=== PATIENT | male | born 1965 | race Asian ===

== ENCOUNTER 2022-03-01 16:12 | Emergency (ER) | payer OTHER ==
[2022-03-01] MEDS ORDERED: ONDANSETRON 4 MG/2 ML VIAL IVP STA (16:44)
[2022-03-01] MEDS ORDERED: SODIUM CHLORIDE 0.9% 1,000 ML IV STA (16:44)
[2022-03-01 16:58] LABS: BASOPHILS % (AUTO) 0.3 %; EOSINOPHILS % (AUTO) 0.1 %; HCT - HEMATOCRIT 44.4 % (42.0-52.0); HGB - HEMOGLOBIN 15.2 g/dL (14.0-18.0); LYMPHOCYTES # (AUTO) 0.9 10^3/uL (1.5-3.5); LYMPHOCYTES % (AUTO) 9.2 %; MEAN CORPUSCULAR HGB CONC 34.2 g/dL (32.0-36.0); MEAN CORPUSCULAR VOLUME 87.6 fL (80.0-94.0); MEAN PLATELET VOLUME 9.9 fL (7.4-11.4); MONOCYTES # (AUTO) 0.5 10^3/uL (0.0-1.0); MONOCYTES % (AUTO) 4.6 %; NEUTROPHILS # (AUTO) 8.6 10^3/uL (1.5-6.6); NEUTROPHILS % (AUTO) 85.6 %; PLT - PLATELET COUNT 228 10^3/uL (130-450); RED BLOOD COUNT 5.07 10^6/uL (4.70-6.10); RED CELL DISTRIBUTION WIDTH 11.4 % (12.0-15.0)
[2022-03-01 17:17] LABS: ALBUMIN 4.3 g/dL (3.2-5.5); ALBUMIN/GLOBULIN RATIO 1.2 (1.0-2.2); BILIRUBIN,TOTAL 0.8 mg/dL (0.2-1.0); CALCIUM 9.5 mg/dL (8.5-10.3); CREATININE 0.7 mg/dL (0.6-1.2); POTASSIUM 3.3 mmol/L (3.5-5.0); TOTAL PROTEIN 7.8 g/dL (6.7-8.2)
--- NOTE | 2022-03-01 17:24 | ED Physician Documentation ---
History of Present Illness - Stated complaint Stated Complaint: NAUSEA/DIZZY - Chief complaint Chief Complaint: Abd Pain - History obtained from History obtained from: Patient - Additonal information Additional information: The patient comes the emergency department chief complaint of vertigo and nausea. He states this started yesterday. He has had vertigo before but this is much worse. He states it is worse with any movement. Patient denies any chest pain or shortness of breath. He states he has not had any weakness, numbness, tingling, or difficulty speaking or swallowing. No visual changes. He has chronic tinnitus and states this is not worse than usual. He states this is actually slightly better today than it was yesterday, but he does have vertigo even at rest, especially if his eyes are open. Review of Systems Ten Systems: 10 systems reviewed and negative Constitutional: reports: Reviewed and negative Eyes: reports: Reviewed and negative Ears: reports: Reviewed and negative Nose: reports: Reviewed and negative Throat: reports: Reviewed and negative Cardiac: reports: Reviewed and negative Respiratory: reports: Reviewed and negative GI: reports: Reviewed and negative : reports: Reviewed and negative Skin: reports: Reviewed and negative Musculoskeletal: reports: Reviewed and negative Neurologic: reports: Other (Vertigo) Psychiatric: reports: Reviewed and negative Endocrine: reports: Reviewed and negative Immunocompromised: reports: Reviewed and negative PD PAST MEDICAL HISTORY - Present Medications Home Medications: Ambulatory Orders Medication Instructions Recorded Confirmed Meclizine HCl [Antivert] 50 mg PO Q6HR PRN #25 tablet 03/01/22 Ondansetron Odt [Zofran] 4 mg TL Q6H PRN #10 tablet 03/01/22 diazePAM [Valium] 5 - 10 mg PO TID PRN #15 tablet 03/01/22 - Allergies Allergies/Adverse Reactions: Allergies Allergy/AdvReac Type Severity Reaction Status Date / Time No Known Drug Allergies Allergy Verified 03/01/22 16:27 PD ED PE NORMAL - Vitals Vital signs reviewed: Yes - General General: Alert and oriented X 3, No acute distress, Well developed/nourished - HEENT HEENT: Atraumatic, PERRL, EOMI, Moist mucous membranes, Other (No nystagmus) - Neck Neck: Supple, no meningeal sign - Cardiac Cardiac: RRR, No murmur, Strong equal pulses - Respiratory Respiratory: No respiratory distress, Clear bilaterally - Abdomen Abdomen: Soft, Non tender, Non distended - Derm Derm: Normal color, Warm and dry, No rash - Extremities Extremities: No deformity, No edema, No calf tenderness / cord - Neuro Neuro: Alert and oriented X 3, rack carrier 2-12 intact, No motor deficit, No sensory deficit, Normal speech, Other (No ataxia sitting in the bed, the patient is unsteady on his feet when ambulating) - Psych Psych: Normal mood, Normal affect Results - Vitals Vitals: Oxygen O2 Source Room air - Labs Labs: Laboratory Tests 03/01/22 03/01/22 03/01/22 16:50 16:50 16:50 WBC 10.0 RBC 5.07 Hgb 15.2 Hct 44.4 MCV 87.6 MCH 30.0 MCHC 34.2 RDW 11.4 L Plt Count 228 MPV 9.9 Neut # (Auto) 8.6 H Lymph # (Auto) 0.9 L Mcintosh # (Auto) 0.5 Eos # (Auto) 0.0 Baso # (Auto) 0.0 Absolute Nucleated RBC 0.00 Nucleated RBC % 0.0 Sodium 139 Potassium 3.3 L Chloride 103 Carbon Dioxide 24 Anion Gap 12.0 BUN 19 Creatinine 0.7 Estimated GFR (MDRD) 116 Glucose 141 H Calcium 9.5 Total Bilirubin 0.8 AST 24 ALT 25 Alkaline Phosphatase 46 Troponin I High Sens 33.2 H* Total Protein 7.8 Albumin 4.3 Globulin 3.5 Albumin/Globulin Ratio 1.2 Lipase 33 03/01/22 18:45 WBC RBC Hgb Hct MCV MCH MCHC RDW Plt Count MPV Neut # (Auto) Lymph # (Auto) Mcintosh # (Auto) Eos # (Auto) Baso # (Auto) Absolute Nucleated RBC Nucleated RBC % Sodium Potassium Chloride Carbon Dioxide Anion Gap BUN Creatinine Estimated GFR (MDRD) Glucose Calcium Total Bilirubin AST ALT Alkaline Phosphatase Troponin I High Sens 33.9 H* Total Protein Albumin Globulin Albumin/Globulin Ratio Lipase - Rads (name of study) head CT Radiology: Final report received, EMP read indepedently, See rad report (neg) PD MEDICAL DECISION MAKING - ED course Complexity details: reviewed results, re-evaluated patient, considered differential, d/w patient, d/w family ED course: The pt was worked up with labs and head CT, which were unremarkable. He was treated symptomatically with IV fluids and Valium, and with PO Meclizine. He was able to complete an ambulation test, though he was still somewhat unsteady on his feet. He had good coordination outside of ambulation, however, and I felt he was stable for d/c. We have discussed symptomatic management at home and the usual indications for return. Departure - Departure Disposition: 01 Home, Self Care Clinical Impression: Benign positional vertigo Qualifiers: Laterality: unspecified laterality Qualified Code(s): H81.10 - Benign paroxysmal vertigo, unspecified ear Condition: Stable Instructions: ED BPV Vertigo Prescriptions: Meclizine HCl [Antivert] 50 mg PO Q6HR PRN #25 tablet PRN Reason: Vertigo diazePAM [Valium] 5 - 10 mg PO TID PRN #15 tablet PRN Reason: Vertigo Ondansetron Odt [Zofran] 4 mg TL Q6H PRN #10 tablet PRN Reason: Nausea / Vomiting Comments: Your labs and CT scan look good., As does your EKG. There is no evidence of a serious or emergent cause of your symptoms today. Your vertigo is most likely peripheral in nature, meaning it is coming from the inner ear rather than from the brain. The symptoms generally will resolve on their own in a matter of hours to days to weeks. The medications we have prescribed will help with this. Your prescriptions have been electronically transmitted to [facility] pharmacy in [place]. Please follow-up with your doctor if you are not feeling better in the next 2 weeks. The number for the ENT clinic has also been provided if you would like to try to follow-up with them. Discharge Date/Time: 03/01/22 19:46
[2022-03-01] MEDS ORDERED: MECLIZINE 12.5 MG TABLET PO STA (18:12)
[2022-03-01] MEDS ORDERED: diazePAM INJ 5 MG/ML SYRINGE IVP STA (18:12)
--- NOTE | 2022-03-01 18:36 | CT Report ---
PROCEDURE: HEAD WO INDICATIONS: Vertigo TECHNIQUE: Noncontrast 4.5 mm thick angled axial sections acquired from the foramen magnum to the vertex. For r adiation dose reduction, the following was used: automated exposure control, adjustment of mA and/or kV according to patient size. COMPARISON: None. FINDINGS: Image quality: Excellent. CSF spaces: Basal cisterns are patent. No extra-axial fluid collections. Ventricles are normal in size and shape. Brain: No midline shift. No intracranial masses or hemorrhage. Sainz-white matter interface is norm al. Skull and face: Calvarium and visualized facial bones are intact, without suspicious lesions. Sinuses: Visualized sinuses and mastoids are clear. IMPRESSION: 1. No acute intracranial process. Reviewed by: Jordyn Guevara MD on 03/01/2022 6:35 PM PDT Approved by: Jordyn Guevara MD on 03/01/2022 6:35 PM PDT Station ID: [id number]
[2022-03-01 19:46] VITALS: BP 168/97
== END 2022-03-01 19:46 | disposition home or self-care (01) ==
LOC: ED 16:12
DX: H81.10 Benign paroxysmal vertigo, unspecified ear (principal)
CPT/HCPCS: 36415; 70450; 80053; 83690; 84484; 85025; 93005; 96374; 96375; 99284; A9270

== ENCOUNTER 2023-08-24 13:28 | Emergency (ER) | payer OTHER ==
[2023-08-24 13:52] VITALS: O2SAT 94
[2023-08-24 14:45] LABS: B. PARAPERTUSSIS- RESP PCR PAN NOT DETECTED; B. PERTUSSIS- RESP PCR PANEL NOT DETECTED; C. PNEUMONIAE- RESP PCR PANEL NOT DETECTED; CORONAVIRUS 229E-RESP PCR NOT DETECTED; CORONAVIRUS HKU1-RESP PCR NOT DETECTED; CORONAVIRUS NL63-RESP PCR NOT DETECTED; CORONAVIRUS OC43-RESP PCR NOT DETECTED; HUMAN METAPNEUMOVIRUS NOT DETECTED; INFLUENZA A- RESP PCR PANEL NOT DETECTED; INFLUENZA B - RESP PCR PANEL NOT DETECTED; M. PNEUMONIAE- RESP PCR PANEL NOT DETECTED; PARAINFLUENZA VIRUS 1 NOT DETECTED; PARAINFLUENZA VIRUS 2 NOT DETECTED; PARAINFLUENZA VIRUS 3 NOT DETECTED; PARAINFLUENZA VIRUS 4 NOT DETECTED; RHINOVIRUS/ENTEROVIRUS NOT DETECTED; RSV- RESP PCR PANEL NOT DETECTED; SARS-CoV-2 -RESP PCR PANEL NOT DETECTED
--- NOTE | 2023-08-24 15:22 | ED Physician Documentation ---
History of Present Illness - Stated complaint Stated Complaint: SORE THROAT,COUGH,L KNEE PX - Chief complaint Chief Complaint: Heent - Additonal information Additional information: 57-year-old male presents emergency department today for chief complaint of left knee pain. He is also worried about chronic ongoing cough that he has been having now since may. In regards to the left knee pain about a week ago when patient was tying his shoe he bent over fell onto his left knee. Since then he has been having gradual worsening pain to the left knee. Is painful now to put any weight onto his left knee its mostly to the posterior knee. He has had no redness no unilateral leg swelling no fevers or chills. Pain with flexion and extension as well as with any weight. Denies any surgeries to the left knee and no other history of injuries or trauma to the left knee aside from chronic pain to the left knee. In regards to the sore throat patient reports that he does not necessarily have a sore throat that is worse than normal but he has been having a chronic postnasal drip with cough since may. He has been taking a lot of Tamiflu at home his son who is at bedside is worried that he has been taking too much table food at home. No hot potato voice no nausea vomiting no fevers or chills no worsening sore throat. PD PAST MEDICAL HISTORY - Present Medications Home Medications: Ambulatory Orders Medication Instructions Recorded Confirmed oxyCODONE [Roxicodone] 5 mg PO Q6H PRN #12 tablet 08/24/23 - Allergies Allergies/Adverse Reactions: Allergies Allergy/AdvReac Type Severity Reaction Status Date / Time No Known Drug Allergies Allergy Verified 08/24/23 13:44 PD ED PE NORMAL - Vitals Vital signs reviewed: Yes - General General: Alert and oriented X 3, No acute distress, Well developed/nourished - HEENT HEENT: Atraumatic, Moist mucous membranes, Pharynx benign - Neck Neck: Supple, no meningeal sign - Derm Derm: Normal color, Warm and dry, No rash - Extremities Extremities: No deformity (right Knee: No lateral medial joint tenderness, full range of motion without clicking or popping, no erythema no swelling, tenderness with flexion, tenderness with ambulation), No edema, No calf tenderness / cord Results - Vitals Vitals: Vital Signs - 24 hr 08/24/23 08/24/23 13:34 16:24 Temperature 36.7 C 36.7 C Heart Rate 88 78 Respiratory 16 16 Rate Blood Pressure 151/83 H 139/90 H O2 Saturation 94 94 Oxygen O2 Source Room air - Labs Labs: Laboratory Tests 08/24/23 13:32 Nasal Adenovirus (PCR) NOT DETECTED Nasal B. parapertussis DNA (PCR) NOT DETECTED Nasal Coronavir 229E PCR NOT DETECTED Nasal Coronavir HKU1 PCR NOT DETECTED Nasal Coronavir NL63 PCR NOT DETECTED Nasal Coronavir OC43 PCR NOT DETECTED Nasal Enterovir/Rhinovir PCR NOT DETECTED Nasal Influenza B PCR NOT DETECTED Nasal Influenza A PCR NOT DETECTED Nasal Parainfluen 1 PCR NOT DETECTED Nasal Parainfluen 2 PCR NOT DETECTED Nasal Parainfluen 3 PCR NOT DETECTED Nasal Parainfluen 4 PCR NOT DETECTED Nasal RSV (PCR) NOT DETECTED Nasal B.pertussis DNA PCR NOT DETECTED Nasal C.pneumoniae (PCR) NOT DETECTED Miguel Human Metapneumo PCR NOT DETECTED Nasal M.pneumoniae (PCR) NOT DETECTED Nasal SARS-CoV-2 (PCR) NOT DETECTED - Rads (name of study) left knee xray Relevant Findings:: Final report received, EMP independent interpretation of test, Other (No joint effusion, no fractures or dislocations, no bony lesions) PD Medical Decision Making - ED course ED course: 57-year-old male presents emergency department for sore throat and left knee pain. In regards to patient sore throat viral swab is negative. Pharynx is benign. He does not have any signs or concerning symptoms of anything emergent such as strep throat, pharyngitis, tonsillar abscess. I believe that this is chronic patient has been struggling with this now for ab out a month and a half or even longer and patient told to follow-up with his primary care provider for sore throat and ongoing cough. In regards to the patient's left knee x-rays were completed and are overall benign. There is no swelling or inflammation concerning for septic joint or gout. Pain significantly improved with Toradol and pain medication here in the emergency department is told to follow-up with his primary care provider for further evaluation and physical therapy referral for his left knee pain. No concerns of DVT strong pulses equal bilaterally no calf tenderness or pain no unilateral leg swelling. Patient given strict ER precautions all questions answered safe for discharge. Departure - Departure Disposition: 01 Home, Self Care Clinical Impression: Posterior left knee pain Instructions: ED Knee Pain UKO Prescriptions: oxyCODONE [Roxicodone] 5 mg PO Q6H PRN #12 tablet PRN Reason: Pain 5-7 Comments: Thank you for trusting us with your care. We have completed x-rays of your left knee which did not reveal any fractures or other acute abnormalities. We have given you a one-time dose of oxycodone here in the emergency department to help with your pain as well as put an Mike wrap on your left knee. We are also sending home with crutches. Make sure that you are still bending her knee frequently throughout the day to help with pain and discomfort of the left knee and is very wet that you follow-up with your primary care provider for further outpatient imaging as needed as well as a referral to physical therapy. You can also ask your primary care provider about a possible ultrasound outpatient for further evaluation of something called a Conte's cyst. Please follow-up with your primary care provider this week or next week for further evaluation. You can alternate between Tylenol and ibuprofen for pain and discomfort and apply 20 minutes of ice or heat or alternate between the 2 as well for pain and discomfort. Keep your knee elevated above your heart to help with inflammation. I have also sent a short prescription of pain meds to preferred pharmacy to get you through the next couple days. I sent this to [facility] in [place] I am prescribing a short course of narcotic pain medication for you. These are potentially dangerous and addictive medications that should be used carefully. These medications may constipate you. Take an xtmo-jxb-jgdimzi stool softener (docusate) twice daily with plenty of water while taking these medications. If you go 24 hours without a bowel movement, take [id number] miralax, per package instructions. Do not drink or drive while taking these medications. If you received narcotic or sedating medications while in the emergency department, do not drive for 24 hours. Store this medication in a safe, secure place and out of reach of children. It is a violation of federal law to give or sell this medication to another person or to use in a manner other than prescribed. The ED will not refill narcotic prescriptions, including prescriptions lost or stolen. To dispose of unwanted medications: 1. [facility] [address] in [place] has a medication drop box. They accept prescription medications (in pill form) Wednesday through Wednesday 9:00 a.m. to 5:00 p.m. 2. [facility] accepts prescription medications (in pill form only) for disposal year round. Call for more information. 3. Contact the [facility] for the next [facility] sponsored prescription drug collection event. , [phone], or [phone]; Note that many narcotic pain relievers also contain Tylenol/acetaminophen. Please ensure that your total dose of acetaminophen from all sources does not exceed 3 g (3000 mg) per day. Forms: PCP List Discharge Date/Time: 08/24/23 16:38
[2023-08-24] MEDS: KETOROLAC 30 MG/ML VIAL IM STA (15:27)
--- NOTE | 2023-08-24 16:03 | XRAY Report ---
PROCEDURE: Knee 2V LT INDICATIONS: right knee pain TECHNIQUE: 2 views of the knee(s) were acquired. COMPARISON: None. FINDINGS: Bones: No fractures or dislocations. No suspicious bony lesions. Soft tissues: No knee joint effusion. No suspicious soft tissue calcifications or masses. IMPRESSION: No acute fracture. No osseous lesion. If symptoms and/or clinical suspicion for pathology continue, f urther assessment with repeat plain films, or advanced imaging (e.g., CT, MRI, or bone scan) is recom mended for further assessment. Reviewed by: Adan Carey MD on 08/24/2023 4:02 PM PST Approved by: Adan Carey MD on 08/24/2023 4:02 PM PST Station ID: [id number]
[2023-08-24 16:30] VITALS: BP 139/90
[2023-08-24] MEDS: oxyCODONE 5 MG TABLET PO STA (16:36)
== END 2023-08-24 16:38 | disposition home or self-care (01) ==
LOC: ED 13:28
DX: M25.562 Pain in left knee (principal); J02.9 Acute pharyngitis, unspecified
CPT/HCPCS: 73560; 87633; 96374; 99284; A9270

== ENCOUNTER 2024-03-21 14:15 | Emergency (ER) | payer OTHER ==
[2024-03-21 14:26] VITALS: BP 160/93; O2SAT 98
--- NOTE | 2024-03-21 14:47 | ED Physician Documentation ---
PD HPI SKIN - Stated complaint Stated Complaint: RASH,ITCHY - Chief complaint Chief Complaint: Wound - History obtained from History obtained from: Patient - Additional information Additional information: He has had an itchy rash for 2 days. He thinks it might be from working out in the garden, either bug bites or exposure to grass. It is quite itchy. PD PAST MEDICAL HISTORY - Past Medical History Past Medical History: No - Past Surgical History Past Surgical History: No - Present Medications Home Medications: Ambulatory Orders Medication Instructions Recorded Confirmed oxyCODONE [Roxicodone] 5 mg PO Q6H PRN #12 tablet 08/24/23 Doxepin [SINEquan] 10 mg PO TID PRN #30 cap 03/21/24 predniSONE [Deltasone] 20 mg PO [id number] #21 tab 03/21/24 - Allergies Allergies/Adverse Reactions: Allergies Allergy/AdvReac Type Severity Reaction Status Date / Time No Known Drug Allergies Allergy Verified 03/21/24 14:19 - Social History Does the pt smoke?: No Smoking Status: Never smoker Does the pt drink ETOH?: No Does the pt have substance abuse?: No - Immunizations Immunizations are current?: Yes - POLST Patient has POLST: No PD ED PE NORMAL - Vitals Vital signs reviewed: Yes - General General: Alert and oriented X 3, No acute distress - Extremities Extremities: Other (Nonspecific rash mostly on the trunk, bilaterally. Grouped tiny vesicles and single vesicles mostly consistent with a contact dermatitis versus bug bites.) - Neuro Neuro: Alert and oriented X 3 Results - Vitals Vitals: Vital Signs - 24 hr 03/21/24 14:19 Temperature 36.5 C Heart Rate 68 Respiratory 16 Rate Blood Pressure 160/93 H O2 Saturation 98 Oxygen O2 Source Room air Departure - Departure Disposition: 01 Home, Self Care Clinical Impression: Rash and nonspecific skin eruption Condition: Good Record reviewed to determine appropriate education?: Yes Instructions: ED Dermatitis Contact Prescriptions: predniSONE [Deltasone] 20 mg PO [id number] #21 tab Doxepin [SINEquan] 10 mg PO TID PRN #30 cap PRN Reason: Itching Comments: This could be bug bites or what is called a contact dermatitis. Does not appear like anything infectious. I sent a prescription for steroids and itch medicine to the [facility] in [place]. Return if you worsen. You can follow-up with the dermatology consultants if not improved over the next few days. DERMATOLOGY: Torri Dang [facility] [phone]
== END 2024-03-21 14:59 | disposition home or self-care (01) ==
LOC: ED 14:15
DX: R21 Rash and other nonspecific skin eruption (principal)
CPT/HCPCS: 99282; 99283